=== PATIENT | female | born 1940 | race Caucasian/White ===

== ENCOUNTER 2016-05-10 17:59 | Outpatient (CLI) | payer MEDICARE, OTHER | END 2016-05-10 18:00 | disposition home or self-care (01) | LOC: NAV SJFMSP 17:59 | PROVIDERS: ATTEND Family Medicine | DX: R19.5 Other fecal abnormalities (principal) | CPT/HCPCS: 87177 ==

== ENCOUNTER 2016-05-30 07:46 | Outpatient (CLI) | payer MEDICARE, OTHER | END 2016-05-30 07:47 | disposition home or self-care (01) | LOC: NAV LABSP 07:46 | PROVIDERS: ATTEND Family Medicine | DX: B82.9 Intestinal parasitism, unspecified (principal) | CPT/HCPCS: 83630; 87015; 87045; 87046; 87328; 87329; 87449; 87899 ==

== ENCOUNTER 2016-06-15 12:58 | Outpatient (CLI) | payer MEDICARE, OTHER | END 2016-06-15 12:59 | disposition home or self-care (01) | LOC: NAV LABSP 12:58 | PROVIDERS: ATTEND Family Medicine | DX: B82.9 Intestinal parasitism, unspecified (principal) | CPT/HCPCS: 87177 ==

== ENCOUNTER 2021-02-10 09:28 | Emergency (ER) | payer MEDICARE, OTHER ==
[~2021-02-10 09:28] MED LIST: Iopamidol 370 76% 100 ML VIAL ONE
[2021-02-10 10:28] LABS: #Basophils 0.1 thou/uL (0.0-0.2); #Eosinphils 0.2 thou/uL (0.0-0.7); #Lymphocytes 2.2 thou/uL (1.20-3.40); #Monocytes 0.5 thou/uL (0.11-0.59); %Basophils 1.3 % (0.0-1.0); %Lymphocytes 36.8 % (21.0-51.0); %Monocytes 8.3 % (0.0-10.0); %Neutrophils 50.5 % (42.0-75.0); Mean Corpuscular HGB CONC 32.5 g/dL (32.0-36.0); Mean Corpuscular Hemoglobin 31.4 pg (27.0-31.0); Mean Corpuscular Volume 96.6 fL (78.0-98.0); Mean Platelet Volume 6.4 fL (7.4-10.4); Platelet Count 299 thou/uL (130-400); RBC Distribution Width 12.1 % (11.5-14.5); Red Blood Cell (RBC) Count 4.15 mill/uL (4.20-5.40); White Blood Cell (WBC) Count 5.9 thou/uL (4.8-10.8)
[2021-02-10 10:36] LABS: Prothrombin Time 12.9 sec (12.0-14.7)
[2021-02-10 10:37] LABS: PTT 28.8 sec (22.9-36.1)
[2021-02-10] MEDS ORDERED: Ondansetron PF 4 MG/2 ML Vial ONE (10:41)
[2021-02-10 10:44] LABS: ALT (SGPT) 15 U/L (8-55); AST (SGOT) 20 U/L (5-34); Alkaline Phosphatase 62 U/L (40-110); Anion Gap 16 mmol/L (10-20); BUN (Urea Nitrogen) 19 mg/dL (9.8-20.1); Bilirubin, Total 0.8 mg/dL (0.2-1.2); Calc. Creatinine Clearance 0 mL/min (70-130); Calcium 9.2 mg/dL (7.8-10.44); Carbon Dioxide 19 mmol/L (23-31); Chloride 107 mmol/L (98-107); Globulin 3.2 g/dL (2.4-3.5); Glucose 117 mg/dL (83-110); Potassium 3.7 mmol/L (3.5-5.1); Protein, Total 7.2 g/dL (5.8-8.1); Sodium 138 mmol/L (136-145)
[2021-02-10] MEDS ORDERED: Meclizine HCl 25 MG TAB ONE (10:54)
[2021-02-10] MEDS ORDERED: Aspirin Chewable 81 MG TAB ONE (12:14)
[2021-02-10 13:43] LABS: SARS-CoV-2 NAA Rapid Test Not Detected (NotDetected)
== END 2021-02-10 13:30 | disposition short-term general hospital (02) ==
LOC: NAV ERS 09:28
DX: E87.8 Other disorders of electrolyte and fluid balance, not elsewhere classified (principal); R11.2 Nausea with vomiting, unspecified; G89.29 Other chronic pain; M54.2 Cervicalgia; Z20.822 Contact with and (suspected) exposure to COVID-19
CPT/HCPCS: 70450; 70496; 70498; 80053; 84484; 85025; 85610; 85730; 93005; 96374; J2405; Q9967; U0002

== ENCOUNTER 2023-03-14 18:09 | Emergency (ER) | payer MEDICARE, OTHER ==
[2023-03-14] MEDS ORDERED: Ondansetron PF 4 MG/2 ML Vial ONE (18:28)
[2023-03-14] MEDS ORDERED: Morphine 2 MG/ML VIAL ONE ×2 (18:28→19:52)
[2023-03-14] MEDS ORDERED: Ketorolac Tromethamine 30 MG/ML VIAL ONE (19:21)
[2023-03-14] MEDS ORDERED: Lorazepam 2 MG/ML VIAL ONE (19:22)
[2023-03-14 19:52] LABS: #Basophils 0.1 thou/uL (0.0-0.2); #Eosinphils 0.3 thou/uL (0.0-0.7); #Lymphocytes 3.3 thou/uL (1.20-3.40); #Monocytes 0.8 thou/uL (0.11-0.59); #Neutrophils 3.5 thou/uL (1.40-6.50); %Basophils 1.3 % (0.0-1.0); %Eosinophils 3.7 % (0.0-10.0); %Monocytes 10.2 % (0.0-10.0); %Neutrophils 43.8 % (42.0-75.0); Hematocrit 37.6 % (36.0-47.0); Hemoglobin 12.7 g/dL (12.0-16.0); Mean Corpuscular HGB CONC 33.7 g/dL (32.0-36.0); Mean Corpuscular Hemoglobin 32.2 pg (27.0-31.0); Mean Corpuscular Volume 95.3 fl (78.0-98.0); Mean Platelet Volume 6.9 fL (7.4-10.4); Platelet Count 292 10x3/uL (130-400); RBC Distribution Width 12.3 % (11.5-14.5); Red Blood Cell (RBC) Count 3.94 mill/uL (4.20-5.40)
[2023-03-14 20:03] LABS: Anion Gap 17 mmol/L (10-20); BUN (Urea Nitrogen) 30 mg/dL (9.8-20.1); Calc. Creatinine Clearance 0 mL/min (70-130); Carbon Dioxide 18 mmol/L (23-31); Chloride 109 mmol/L (98-107); Estimated GFR 51; Glucose 101 mg/dL (83-110); Potassium 4.4 mmol/L (3.5-5.1); Sodium 140 mmol/L (136-145)
[2023-03-14 20:05] LABS: Bilirubin Negative (Negative); Blood, Urine Negative (Negative); Glucose, Urine (Dipstick) Negative (Negative); Ketone, Urine Negative (Negative); Leukocyte Trace (Negative); Nitrite Negative (Negative); Protein, Urine (Dipstick) Trace mg/dL (Neg-Trace); Urobilinogen 0.2 mg/dL (Less than 2)
[2023-03-14 20:13] LABS: Clarity Hazy (Clear)
[2023-03-14 20:14] LABS: CAUTI Indications for Culture Pelvic or flank pain; Squamous Epithelial 0-3 HPF (0-3)
[2023-03-14 20:16] LABS: Urine Culture Reflex No No
== END 2023-03-14 21:41 | disposition home or self-care (01) ==
LOC: NAV ERS 18:09
DX: M62.838 Other muscle spasm (principal)
CPT/HCPCS: 80048; 81001; 85025; 96374; 96375; 96376; J1885; J2060; J2272; J2405

== ENCOUNTER 2024-02-13 10:35 | Emergency (ER) | payer MEDICARE, OTHER | END 2024-02-13 10:42 | disposition left against medical advice (07) | LOC: NAV ERS 10:35 | DX: Z53.21 Procedure and treatment not carried out due to patient leaving prior to being seen by health care provider (principal) ==

== ENCOUNTER 2025-03-22 14:35 | Emergency (ER) | payer MEDICARE, OTHER ==
[2025-03-22] MEDS ORDERED: Ondansetron PF 4 MG/2 ML Vial ONE (15:29)
[2025-03-22] MEDS ORDERED: Orphenadrine Citrate 60 MG/2 ML VIAL ONE (15:30)
== END 2025-03-22 16:55 | disposition home or self-care (01) ==
LOC: NAV ERS 14:35
DX: M54.50 Low back pain, unspecified (principal); G89.29 Other chronic pain
CPT/HCPCS: J2272; J2360; J2405; 96374; 96375